=== PATIENT | male | born 1990 ===

== ENCOUNTER 2017-04-10 23:40 | Inpatient (IN) ==
--- NOTE | 2017-04-11 00:46 | EKG Report ---
Stationary ECG Study [facility] ER Test Date: 04/11/2017 12:44:32 AM Pat Name: DONTRELL VANN Department: Room: Gender: M [employer]amp [employer] Operator: JULITA : 1990 Requested by: Ed Physician Temporary Order Number: [id number] Reading MD: JESUS CESPEDES Intervals [place] Rate: 103 P: 79 CO: 278 QRS: 88 QRSD: 110 T: 75 QT: 427 QTc: 487 Interpretive Statements SINUS TACHYCARDIA WITH PROLONGED CO INTERVAL Electronically Signed On 04-12-17 16:44:55 CDT by JESUS CESPEDES [email or web address]
[2017-04-11 01:04] LABS: Calcium 8.5 MG/DL (8.5-10.1); Magnesium 1.6 MG/DL (1.8-2.4); Osmolality,Calculated 245.3 MOS/KG (273-304)
[2017-04-11 01:12] LABS: Basophils % 0.1 % (0.0-0.8); Hematocrit 37.9 VOL% (42.0-52.0); Hemoglobin 14.8 GM/DL (14.0-18.0); Immature Granulocytes % 0.3 %; Immature Granulocytes Absolute 0.02 #; Lymphocytes # 1.3 10*3/uL (1.4-4.0); Lymphocytes % 17.1 % (21.2-54.2); Mean Corpuscular HGB Conc 39.1 GM/DL (32-36); Mean Corpuscular Hemoglobin 30 PG (27-34); Mean Corpuscular Volume 77.5 FL (87-102); Mean Platelet Volume 12.2 FL (9.6-12.0); Monocytes # 1.1 10*3/uL (0.11-0.8); Monocytes % 15.5 % (1.7-12.7); Neutrophils # 4.9 10*3/uL (1.4-7.4); Platelet Count 93 T/CUMM (130-400); Red Blood Count 4.89 MC/CUMM (3.8-5.5); Red Cell Distribution Width 12.2 % (9.3-17.3); White Blood Count 7.3 T/CUMM (4-12)
[2017-04-11 01:18] LABS: Potassium 2.1 MMOL/L (3.5-5.1)
[2017-04-11 02:05] LABS: INR 1.2; PT Patient Result 12.7 SECS
[2017-04-11 02:10] LABS: Albumin 4.6 G/DL (3.4-5.0); Bilirubin,Direct 1.6 MG/DL (0.0-0.20); Bilirubin,Indirect 3.3 MG/DL (0.0-1.0); Bilirubin,Total 4.9 MG/DL (0.2-1.0); Total Protein 7.5 G/DL (6.4-8.3)
[2017-04-11] MEDS ORDERED: MAGNESIUM CITRATE 300 ML BOTTLE PO STA (02:58)
[2017-04-11] MEDS ORDERED: POTASSIUM BICARB EFFERVESCENT 25 MEQ TABLET PO ONE ×2 (02:58→03:12)
[2017-04-11] MEDS ORDERED: THIAMINE 200 MG/2 ML VIAL IV STA (03:00)
[2017-04-11] MEDS ORDERED: DEXTROSE 5% NACL 0.9% 1,000 ML IV SCH (03:00)
--- NOTE | 2017-04-11 03:01 | Emergency Department Note ---
Kiran Cano Brittany, am scribing for, and in the presence of, Val Méndez DO 02:06. IDev Whitney, DO, personally performed the services described in this documentation, ascribed by Lillie Beck in my presence, and it is both accurate and complete . Arrival - Arrival Chief Complaint: Non-Specific Stated Complaint: etoh detox, hypokalemia ED Nursing Triage Note: transfer from [facility] for further eval. of etoh withdrawl and hypokalemia. k+ 1.2 at [facility], was told per ems that potassium was replaced enroute, unknown what mcg admin. Mode of Arrival: Stretcher Limitations: No Limitations Source: Patient, RN Notes Reviewed Time Seen by Provider: 04/11/17 01:45 - History of Present Illness HPI Narrative: Patient is a 26 y/o male presenting to the ED by EMS from [facility] for further evaluation of ETOH withdrawal and Hypokalemia. He initially presented to the ER for shaking, intractable nausea and vomiting, and alcohol withdrawal. While at [facility] patient was found to have a Potassium level of 1.2. En route to the ED patient was given IV potassium. He reports that he initially presented to [facility] after he began to experience tremors of bilateral upper extremities. He reports a history of ETOH abuse for years and has been attempting to get sober for his family. He notes his last use of ETOH was 2 days ago. He does have some nausea, but denies any pain at current. He admits that when he did use ETOH, he drank about 7-8 "10 percent" liquor beverages. He does report a history of IDDM, but has been noncompliant with Insulin for the past 4-5 days. He admits to use of cigarettes, but denies use of recreational drugs. On exam patient is noted to have positive asterixis. He has no other complaint/pain. Allergies/Adverse Reactions: Allergies Allergy/AdvReac Type Severity Reaction Status Date / Time No Known Allergies Allergy Verified 10/13/16 04:46 Home Medications: Home Medications Medication Instructions Recorded Confirmed Type FLUoxetine [PROzac] 20 mg PO DAILY 10/13/16 10/13/16 History Gabapentin Cap/Tab [Neurontin 800 mg PO TID 10/13/16 10/13/16 History Cap/Tab] Lisinopril [Prinivil] 5 mg PO DAILY 10/13/16 10/13/16 History Potassium Chloride 40 meq PO DAILY 10/13/16 10/13/16 History Ampicillin Inj 2,000 mg IV Q6H vial 10/21/16 Rx Review of System - Review of System 12 point system: reviewed and no additional remarkable complaints except as stated - Review of System Constitutional: Present: as per HPI (tremors of bilateral upper extremities). Absent: chills, fever Eyes: Absent: vision change Head/Ears/Nose/Throat: Absent: nasal drainage, sore throat Respiratory: Absent: respiratory distress Cardiovascular: Absent: chest pain, palpitations Gastrointestinal: Absent: abdominal pain, nausea, vomiting, diarrhea, constipation Genitourinary male: Absent: urgency, dysuria, frequency Musculoskeletal: Absent: arm pain, back pain, leg pain, neck pain Skin: Absent: rash Neurological: Absent: headache Psychiatric: Absent: anxiety, depression Hematological/Lymphatic: Absent: easy bleeding, easy bruising Medical,Surgical,& Family Hx - Medical History Cardio: History of: Hypertension Psychological: History of: Anxiety Disorders Neurology: History of: Seizures ("I think I had one") Endocrine: History of: Diabetes Mellitus (IDDM) - Surgical History Thoracic Surgeries: Patient denies;: Organ Transplant - Family History Family History: Reports;: Family Diabetes, Family Hypertension - Social History Smoking Status: Smoker, status unknown Frequency of Alcohol Use: Frequently Type of Drug Use: None Exam Vital Signs: Vital Signs Temperature 98.7 F 04/10/17 23:41 Pulse Rate 103 H 04/10/17 23:41 Respiratory Rate 20 04/10/17 23:41 Blood Pressure 126/86 04/10/17 23:41 O2 Sat by Pulse Oximetry 99 04/10/17 23:41 - General General appearance: alert, in no apparent distress - Head Head exam: Present: atraumatic, normocephalic, normal inspection - Eye Eye exam: Present: normal appearance, PERRL, EOMI - ENT ENT exam: Present: normal exam, normal oropharynx - Neck Neck exam: Present: normal inspection, full ROM, trachea midline - Chest Chest inspection: Present: normal inspection, symmetric chest wall rise - Respiratory Respiratory exam: Present: normal lung sounds bilaterally. Absent: rales, rhonchi, wheezes - Cardiovascular Cardiovascular exam: Present: normal rhythm, tachycardia, normal heart sounds. Absent: regular rate - Abdominal Exam Abdominal exam: Present: soft (asterixis noted), normal bowel sounds. Absent: distention, tenderness - Extremities Exam Extremities exam: Present: normal inspection - Back Exam Back exam: Present: normal inspection - Neurological Exam Neurological exam: Present: alert, oriented X3, CN II-XII intact, other ( positive asterixis). Absent: motor sensory deficit - Psychiatric Psychiatric exam: Present: normal affect, normal mood, anxious - Skin Skin exam: Present: warm, dry Course Course Narrative: Patient seems to be in full withdrawal but no seizure activity. Patient has slightly tremulous. He complains of no pain currently. RN informs me of critical lab value of sodium of 119 which probably needs to be corrected however his sodium is probably low as is his potassium from vomiting and alcohol withdrawal was can be life-threatening. We will give IV thiamine and start on some D5 normal saline also given oral magnesium and potassium because given IV potassium already will admit to internal medicine for further management. Results - Labs CBC & BMP: 04/11/17 00:20 04/11/17 00:20 Lab Results: I have reviewed the patients labs Labs: Laboratory Tests 04/11/17 04/11/17 00:20 00:20 WBC 7.3 RBC 4.89 Hgb 14.8 Hct 37.9 L MCV 77.5 L MCHC 39.1 H Plt Count 93 L MPV 12.2 H Lymph % (Auto) 17.1 L [place] % (Auto) 15.5 H Lymph # (Auto) 1.3 L [place] # (Auto) 1.1 H Sodium 119 L* Potassium 2.1 L* Chloride 65 L Carbon Dioxide 37 H Anion Gap 19.1 H BUN 18 Creatinine 0.90 Glucose 164 H Calculated Osmolality 245.3 L Magnesium 1.6 L Disposition Clinical Impression: Alcohol withdrawal delirium, Hyponatremia, Hypokalemia, Nausea & vomiting Case discussed with: patient Disposition: Still a Patient
[2017-04-11] MEDS ORDERED: CYANOCOBALAMIN 1000 MCG/1 ML VIAL ONE (03:12)
[2017-04-11] MEDS ORDERED: THIAMINE 200 MG/2 ML VIAL ONE (03:13)
--- NOTE | 2017-04-11 03:21 | Hospitalist History & Physical ---
Assessment and Plan (1) Hypomagnesemia Status: Acute Assessment and plan: Hypomagnesium - oral and IV replacement - will monitor Current Visit: Yes (2) Elevated liver enzymes Status: Acute Assessment and plan: Abdominal pain/elevated liver enzymes/nausea/vomiting - elevated liver enzymes may be due to alcholism - IVF - Abd ultrasound - pancreatic enzyme ordered - hepatitis panel ordered - will monitor Current Visit: Yes (3) Abdominal pain Status: Acute Assessment and plan: see above Current Visit: Yes (4) Alcohol withdrawal delirium Status: Acute Assessment and plan: alcohol withdrawal - PRN IV ativan - scheduled Librium - banana bag given in ER - will start oral thiamine, folic acid, and multivitamin - will monitor Current Visit: Yes (5) Hypokalemia Status: Acute Assessment and plan: Hypokalemia - oral and IV replacement - will monitor Current Visit: Yes (6) Hyponatremia Status: Acute Assessment and plan: hyponatremia - likely due to excess water consumption vs beer potomania - IVF - may require fluid restriction instead - will monitor Current Visit: Yes (7) Thrombocytopenia Status: Acute Assessment and plan: Thrombocytopenia - will monitor Current Visit: No History of Present Illness Chief complaint: Alcohol withdrawal; nausea/vomiting History of present illness: Mr. Diego is a 26 year old male with a history of hypertension, anxiety, diabetes, and alcohol abuse that presented as a ER transfer from [place] for alcohol withdrawal symptoms and lab abnormalities. Patient reports that he stopped drinking alcohol about 2 days ago. He was drinking up to eight large mixed drinks a day. He has been having decreased appetite and drinking more water. Yesterday morning, patient developed tremors and also started having nausea and vomiting. Patient also reports epigastric pain and anxiety but denies any other symptoms. Patient has also been out of insulin for several days. Patient had alcohol withdrawal symptoms before. Patient was found to have hyponatremia, hypomagnesia, hypokalemia, and elevated liver enzymes in the ER. Patient will be admitted to hospitalist service for further management and evaluation. Home Medications Medication Instructions Recorded Confirmed Type FLUoxetine [PROzac] 20 mg PO DAILY 10/13/16 10/13/16 History Gabapentin Cap/Tab [Neurontin 800 mg PO TID 10/13/16 10/13/16 History Cap/Tab] Lisinopril [Prinivil] 5 mg PO DAILY 10/13/16 10/13/16 History Potassium Chloride 40 meq PO DAILY 10/13/16 10/13/16 History Ampicillin Inj 2,000 mg IV Q6H vial 10/21/16 Rx Allergies Allergy/AdvReac Type Severity Reaction Status Date / Time No Known Allergies Allergy Verified 10/13/16 04:46 Medical,Surgical,& Family Hx - Medical History Cardio: History of: Hypertension Psychological: History of: Anxiety Disorders Neurology: History of: Seizures ("I think I had one") Endocrine: History of: Diabetes Mellitus (IDDM) - Surgical History Thoracic Surgeries: Patient denies;: Organ Transplant - Family History Family History: Reports;: Family Diabetes, Family Hypertension - Social History Smoking Status: Smoker, status unknown Frequency of Alcohol Use: Frequently Type of Drug Use: None 12 point system: reviewed and no additional remarkable complaints except as stated Exam - Constitutional General appearance: normal weight, no acute distress - Head Head exam: Present: normal inspection - Eye Eye exam: Present: EOMI - ENT ENT exam: Present: other (moist mucous membranes) - Respiratory Respiratory exam: Present: clear to auscultation bilaterally - Cardiovascular Cardiovascular exam: Present: regular rate and rhythm. Absent: diastolic murmur , systolic murmur - GI/Abdominal GI/Abdominal exam: Present: normal bowel sounds, tenderness (epigastric). Absent: distended - Extremities Exam Extremities exam: Absent: edema - Neurological Exam Neurological exam: Present: alert, oriented X3 - Psychiatric Psychiatric exam: Present: anxious - Skin Skin exam: Present: normal color, warm, dry Results - Labs CBC & BMP: 04/11/17 00:20 04/11/17 00:20
[2017-04-11] MEDS ORDERED: NICOTINE 21 MG/24 HR PATCH TRANSDERM PRN (03:42)
[2017-04-11] MEDS ORDERED: ONDANSETRON 4 MG/2 ML VIAL IV PRN (03:42)
[2017-04-11] MEDS ORDERED: PROMETHAZINE 25 MG TABLET PO PRN (03:42)
[2017-04-11] MEDS ORDERED: PROMETHAZINE 25 MG/1 ML VIAL IM PRN (03:42)
[2017-04-11] MEDS ORDERED: LACTULOSE 20 GM/30 ML UDCUP PO PRN (03:42)
[2017-04-11] MEDS ORDERED: ACETAMINOPHEN 325 MG TABLET PO PRN (03:42)
[2017-04-11] MEDS: SODIUM CHLOR 0.9% KCL 40 MEQ 40 MEQ/1,000 ML BAG IV SCH ×2 (03:59→17:02)
[2017-04-11] MEDS: LORazepam 2 MG/1 ML VIAL IV PRN ×2 (03:59→08:35)
[2017-04-11 04:09] LABS: Anisocytosis 1+; Hypochromasia 1+; Platelet Estimate Decreased
[2017-04-11 07:38] LABS: Albumin 4.2 G/DL (3.4-5.0); Bilirubin,Total 4.3 MG/DL (0.2-1.0); Calcium 8.7 MG/DL (8.5-10.1); Magnesium 1.8 MG/DL (1.8-2.4); Osmolality,Calculated 247.1 MOS/KG (273-304)
[2017-04-11 07:41] LABS: Potassium 2.5 MMOL/L (3.5-5.1)
[2017-04-11 08:12] LABS: Apearance,Urine CLEAR (Clear); Bilirubin,Urine Negative (Negative); Blood, Urine Negative (Negative); Glucose,Urine (UA) >=500 mg/dL (Negative); Ketones,Urine 20 mg/dL (Negative); Mucus,Urine Occasional /LPF (Occasional); Nitrite,Urine Negative (Negative); Protein,Urine 100 MG/DL; RBC,Urine <1 /HPF (0-4); Squamous Epithelial Cell,Urine Occasional /HPF (0-10); Urine Color Amber (Yellow); Urine Specific Gravity 1.015 (1.001-1.035); WBC,Urine 1 /HPF (0-6)
[2017-04-11 08:28] LABS: Hepatitis A Ab IgM Quant < 0.02 Index; Hepatitis A Ab IgM Result Negative (Negative); Hepatitis B Core IgM Result Negative (Negative); Hepatitis B Surface Ag Quant 0.16 Index; Hepatitis B Surface Ag Result Negative (Negative); Hepatitis C Virus Ab Quant 0.14 Index; Hepatitis C Virus Ab Result Negative (Negative)
[2017-04-11] MEDS: ENOXAPARIN 40 MG/0.4 ML SYRINGE SUBCUT SCH (08:34)
[2017-04-11] MEDS: MAGNESIUM OXIDE 400 MG TABLET PO SCH (08:35)
[2017-04-11] MEDS: LISINOPRIL 5 MG TABLET PO SCH (08:35)
[2017-04-11] MEDS: POTASSIUM CHLORIDE 20 MEQ TABLET PO SCH ×2 (08:35→21:57)
[2017-04-11] MEDS: GABAPENTIN 400 MG CAPSULE PO SCH ×3 (08:35→21:56)
[2017-04-11] MEDS: FLUoxetine 20 MG CAPSULE PO SCH (08:35)
[2017-04-11] MEDS: PANTOPRAZOLE 40 MG TABLET PO SCH (08:35)
[2017-04-11] MEDS: chlordiazePOXIDE 25 MG CAPSULE PO SCH ×4 (08:35→21:57)
--- NOTE | 2017-04-11 10:45 | Ultrasound Report ---
Right upper quadrant ultrasound Indication: Abdominal Pain, nausea vomiting Findings: The liver is normal in size with diffusely increased echogenicity. The gallbladder is distended with sludge. The gallbladder wall thickness is 4.0 mm . The common bile duct measures 3.8 mm. The visualized portion of the pancreas appear within normal limits The right kidney is normal in size and echogenicity and measures 10.1 cm . No free fluid or free air seen. Impression: Distended gallbladder with sludge. Diffuse fatty liver infiltration. No other evidence of abnormality demonstrated. Ultrasound images stored and captured. PROCEDURE INTERPRETED AT [facility] DEPARTMENT OF RADIOLOGY Final Report Signed by: Dr. Filemon Grace
[2017-04-12] MEDS: SODIUM CHLOR 0.9% KCL 40 MEQ 40 MEQ/1,000 ML BAG IV SCH ×2 (06:02→21:08)
[2017-04-12 07:27] LABS: Basophils % 0.6 % (0.0-0.8); Eosinophils # 0.1 10*3/uL (0.0-0.87); Hematocrit 34.7 VOL% (42.0-52.0); Hemoglobin 12.9 GM/DL (14.0-18.0); Immature Granulocytes % 0.2 %; Immature Granulocytes Absolute 0.01 #; Lymphocytes # 1.5 10*3/uL (1.4-4.0); Lymphocytes % 28.3 % (21.2-54.2); Mean Corpuscular HGB Conc 37.2 GM/DL (32-36); Mean Corpuscular Hemoglobin 30 PG (27-34); Mean Corpuscular Volume 81.1 FL (87-102); Mean Platelet Volume 12.1 FL (9.6-12.0); Monocytes # 0.6 10*3/uL (0.11-0.8); Monocytes % 11.6 % (1.7-12.7); Neutrophils % 58.3 % (38.7-73.9); Platelet Count 78 T/CUMM (130-400); Red Blood Count 4.28 MC/CUMM (3.8-5.5); Red Cell Distribution Width 12.3 % (9.3-17.3); White Blood Count 5.2 T/CUMM (4-12)
[2017-04-12 07:52] LABS: Platelet Estimate Decreased
[2017-04-12 07:54] LABS: Bilirubin,Total 2.7 MG/DL (0.2-1.0); Calcium 8.9 MG/DL (8.5-10.1); Magnesium 2.4 MG/DL (1.8-2.4); Osmolality,Calculated 261.8 MOS/KG (273-304); Potassium 3.5 MMOL/L (3.5-5.1); Total Protein 6.5 G/DL (6.4-8.3)
[2017-04-12] MEDS ORDERED: MULTIVITAMIN (CENTRUM) TABLET PO SCH (09:00)
[2017-04-12] MEDS ORDERED: FOLIC ACID 1 MG TABLET PO SCH (09:00)
[2017-04-12] MEDS ORDERED: THIAMINE 100 MG TABLET PO SCH (09:00)
[2017-04-12] MEDS: LISINOPRIL 5 MG TABLET PO SCH (09:22)
[2017-04-12] MEDS: MAGNESIUM OXIDE 400 MG TABLET PO SCH (09:22)
[2017-04-12] MEDS: GABAPENTIN 400 MG CAPSULE PO SCH ×3 (09:22→20:21)
[2017-04-12] MEDS: PANTOPRAZOLE 40 MG TABLET PO SCH (09:22)
[2017-04-12] MEDS: FLUoxetine 20 MG CAPSULE PO SCH (09:23)
[2017-04-12] MEDS: POTASSIUM CHLORIDE 20 MEQ TABLET PO SCH ×2 (09:23→20:21)
[2017-04-12] MEDS: chlordiazePOXIDE 25 MG CAPSULE PO SCH ×4 (09:23→20:21)
[2017-04-12] MEDS: ENOXAPARIN 40 MG/0.4 ML SYRINGE SUBCUT SCH (10:58)
[2017-04-12] MEDS ORDERED: DEXTROSE 50% 25 GM/50 ML VIAL IV PRN (11:17)
[2017-04-12] MEDS ORDERED: GLUCAGON 1 MG VIAL IM PRN (11:17)
--- NOTE | 2017-04-12 14:22 | Hospitalist Progress Note ---
Assessment and Plan (1) Alcohol withdrawal Status: Acute Assessment and plan: continue with IVF plus banana bag. Continue with IV Ativan prn Current Visit: No (2) Hypertension Status: Acute Assessment and plan: stable Current Visit: No (3) Elevated liver enzymes Status: Acute Assessment and plan: Hepatitis panel is negative. Will get a right upper quadrant USS Current Visit: Yes (4) Diabetes mellitus Status: Acute Assessment and plan: continue with SSC, will get HbA1c level Current Visit: Yes (5) Hyponatremia Status: Acute Assessment and plan: Improving Current Visit: No (6) Thrombocytopenia Status: Acute Assessment and plan: most likely due to CLD vs chronic alcoholism Current Visit: No Hospitalist: Subjective Interval history: Patient was seen pacing around the room, restless Exam - Constitutional Vitals: Period Temp Pulse Resp BP Sys/Cabezas Pulse Ox Last 24 Hr 97.5 F-99.4 F 61-84 18-88 111-152/63-81 96-100 General appearance: no acute distress, other (tinge of jaundice) - Cardiovascular Cardiovascular exam: Present: regular rate and rhythm - GI/Abdominal GI/Abdominal exam: Present: normal bowel sounds - Back Exam Back exam: Present: normal inspection - Neurological Exam Neurological exam: Present: alert, oriented X3 Results - Labs CBC & BMP: 04/12/17 07:05 04/12/17 07:05 Lab Results: I have reviewed the past 24 hour labs
[2017-04-12 16:10] LABS: Apearance,Urine CLEAR (Clear); Bilirubin,Urine Moderate mg/dL (Negative); Blood, Urine Negative (Negative); Glucose,Urine (UA) Negative (Negative); Ketones,Urine 5 mg/dL (Negative); Mucus,Urine Occasional /LPF (Occasional); Nitrite,Urine Negative (Negative); Protein,Urine Negative; Urine Color Amber (Yellow); Urine Specific Gravity 1.014 (1.001-1.035); WBC,Urine <1 /HPF (0-6)
[2017-04-12] MEDS: INSULIN LISPRO 100 UNIT/ML SUBCUT SCH ×3 (17:25→21:17)
[2017-04-12] MEDS: LORazepam 2 MG/1 ML VIAL IV PRN (21:08)
[2017-04-12 22:59] VITALS: BP 139/91
--- NOTE | 2017-04-12 23:04 | Event Note ---
I was called by the nursing staff at 10:49 PM to notify me that the patient had eloped. He removed his front desk monitor and disconnected his IV and left the premises. The patient's mother was notified and called the patient who was long term back to [place]. He indicated that he was not coming back. Nursing staff has notified security and will complete the appropriate paperwork as the patient has eloped.
--- NOTE | 2017-04-13 07:39 | Physician Query Form ---
CLICK EDIT DOCUMENT TO SELECT QUERY ANSWER --> OK --> SIGN Keya Franco RN, CCDS Certified Clinical Loom Operator W) [phone] (f) [phone] [email or web address]: Make your selection(s) from the choices in EACH section by typing an "x" and enter comments in the comment section. Please use your independent medical judgment in providing your response. This request does not imply that any particular answer is desired or expected. CLINICAL INDICATORS: (Providers should not edit this section) Height: 72" Weight: 125 lbs Shingles Roofer BMI: BMI of 17.0 Nutritional supplements: Brush Material Preparer notes: Other clinical notes: The medical record indicates that the patient was admitted with "alcohol withdrawal delirium", "has been having decreased appetite", Hypokalemia, NV, "underweight" <----per dietary, "normal weight", BMI of 17.0, HT 72", and weight of 125 lbs. Based on the above, which following choice most accurately represents the patient's nutritional status? ( ) Malnutrition ( ) mild (x ) moderate ( ) severe ( ) Protein calorie malnutrition ( ) mild ( ) moderate ( ) severe ( ) Emaciation due to malnutrition ( ) Nutritional marasmus ( ) Cachexia ( ) Underweight ( ) No nutritional deficiency ( ) Other, please specify: ( ) Clinically unable to determine Mild Malnutrition (BMI < 18.5, % Normal Body Weight 85-95%) Moderate Malnutrition (BMI < 17, % Normal Body Weight 75-85%) Severe Malnutrition (BMI < 16, % Normal Body Weight < 75%) Source: [place] COMMENTS: PLEASE ALSO DOCUMENT RESPONSE IN PROGRESS NOTES AND/OR DISCHARGE SUMMARY Use of terms such as suspected, likely, or probable (associated with a specific diagnosis that is being evaluated, monitored, or treated as if it exists) are acceptable and can be restated in the discharge summary if not ruled out. MTDD
[2017-04-13] MEDS ORDERED: PANTOPRAZOLE 40 MG VIAL IV SCH (09:00)
--- NOTE | 2017-04-15 12:58 | Discharge Summary ---
Hospital Course - Hospital Course Hospital Course: Mr. Diego is a 26 year old male with a history of hypertension, anxiety, diabetes, and alcohol abuse who was transferred from [place] for alcohol withdrawal after going on an ETOH binge..Upon arrival he was found to have hyponatremia, hypomagnesia, hypokalemia,thrpmbocytopenia and elevated liver enzymes . He was admitted, started on DT prophylasix, banana bag, IVF, electrolytes were corrected.His blood pressure was controlled.Hepatitis panel was negative.Right upper quadrant was ordered. The hospitalist inspector canned food reconditioning was notified by the nursing staff at 10:49 PM that the patient had eloped. He removed his patient monitor and disconnected his IV and left the premises. The patient's mother was notified and called the patient who was longterm back to [place]. He indicated that he was not coming back. Nursing staff notified security and paper work was completed.. - Time spent with patient Time with patient DS: Less than 30 minutes Diagnosis - Discharge Diagnosis (1) Alcohol withdrawal Status: Acute (2) Hypertension Status: Acute (3) Elevated liver enzymes Status: Acute (4) Diabetes mellitus Status: Acute (5) Hyponatremia Status: Acute (6) Thrombocytopenia Status: Acute Discharge Plan - Discharge Data Disposition: Left Against Medical Advice - Discharge Medications No Action Gabapentin Cap/Tab [Neurontin Cap/Tab] 800 mg PO TID Lisinopril [Prinivil] 5 mg PO DAILY FLUoxetine [PROzac] 20 mg PO DAILY Potassium Chloride 40 meq PO DAILY Insulin Detemir [Levemir] 20 unit SUBCUT BEDTIME Insulin Aspart [NovoLOG] See Protocol SUBCUT ACHS - Follow Up or Referral - Forms/Instructions DS: Provider Date of admission: 04/11/17 02:40 Primary care physician: Arjun Anders MD Attending physician on admission: Jay Stafford Consults: 04/11/17 05:23 Consult to Dietitian [CONS] Routine Reason for Dietitian: Dietary Consult Discharging clinician: Sally Larsen MD
== END 2017-04-12 22:25 | disposition left against medical advice (07) | DRG 894 ==
LOC: EDUNIT# → N.ED 23:40 → N.EDINP 04-11 02:40 → SUATTDRO 04-11 02:40 → N.5E 04-11 03:25
PROVIDERS: ADMIT Family Medicine; ATTEND Internal Medicine